=== PATIENT | male | born 1930 | race Caucasian/White ===

== ENCOUNTER → 2016-11-26 | Outpatient (CLI) | payer OTHER, MEDICARE, BC ==
[~2016-11-26] MED LIST: CALTRATE-600 W600 MG PO; CREON 121 CAP PO; KLOR-CON M2020 ME1 PO; LEVAQUIN DPS500 MG PO; LEXAPRO DPS10 MG PO; LIPITOR DPS10 MG PO; METAMUCIL FIBE1 EACH PO; PEPCID DPS20 MG PO; PROAIR HFA8.5 GM IH; PROTONIX40 MG PO; TYLENOL DPS325 MG PO; XELODA150 MG PO
== END | disposition home or self-care (01) ==
LOC: THER.SSS 12:18
DX: E86.0 Dehydration (principal)

== ENCOUNTER → 2016-11-28 | Outpatient (CLI) | payer OTHER, MEDICARE, BC | END | disposition home or self-care (01) | LOC: RAD.S 09:00 | DX: R13.10 Dysphagia, unspecified (principal); R05 Cough; R63.4 Abnormal weight loss ==

== ENCOUNTER 2017-01-04 12:12 | Emergency (ER) | payer MEDICARE, BC ==
--- NOTE | 2017-01-24 21:33 | ER ---
ADMIT: 01/04/2017 RM/LOC: ER [facility] MR#: [id number] [address] [id number] [place] [address] Emergency Room Report SEX: M AGE: 86 : 1930 DATE: 01/04/2017 ADDENDUM: CHIEF COMPLAINT: Fall. HISTORY OF PRESENT ILLNESS: This is an 86-year-old male, who presents to the ER following a fall at [facility], [place]. Per report, the patient was on the toilet when he stood to pull up his pants and fell forward striking his head on the doorjamb. The patient does not remember the event and does not remember coming to the hospital. At baseline, he is somewhat confused, oriented to person, but not place or time. Currently, the patient complains of some swelling and pain to the midline of his forehead and denies any other injuries. Does have a history of pancreatic cancer, as well as cardiac disease, orthostatic hypertension, and lower leg edema. He is not on any blood thinners. COURSE IN THE EMERGENCY ROOM: The patient was seen and examined. His vital signs are stable. VITAL SIGNS: BP 129/73, heart rate 66, respiratory rate 16, temp 98.2. GENERAL: No acute distress. He is alert. HEAD: Shows some tenderness and swelling to the midline with an overlying abrasion. NECK: Nontender with palpation. He is able to complete a complete range of motion without pain or neuro symptoms. EYES: Equal and reactive to light. ENT: Inspection is unremarkable. NEURO: He is alert, disoriented to place, time, and situation. He is slow to respond and his daughter answers most of the questions for him. He is cooperative with the exam and shows an overall flat affect. Cranial nerves are normal as tested. He typically uses a wheelchair and just transfers to bed. No obvious motor deficit on exam. RESPIRATORY: Chest was nontender. Breath sounds are normal. HEART: Sounds are normal. ABDOMEN: Nontender. BACK: No tenderness over any vertebrae. SKIN: Just the abrasion to the midline of his forehead. PELVIS: Stable. I did proceed with CT head and cervical spine which showed no acute process, some evidence of age-related degenerative changes. LABORATORY STUDIES: CBC; white count 8.2, hemoglobin 14.1, Hematocrit 41.6, platelets 156. CMP; sodium 138, potassium 4.3, chloride 104, CO2 of 25, glucose 90, creatinine 0.9. Liver enzymes within normal limits. I did discuss this patient with Dr. Gutierres. Reviewed the labs as well as radiology results he was reassured and felt it was appropriate for this ADMIT: 01/04/2017 RM/LOC: ER [facility] MR#: [id number] [address] [place], [place] [id number] [place] [address] Emergency Room Report SEX: M AGE: 86 : 1930 patient to discharge back to the [facility] facility with followup with any worsening symptoms. IMPRESSION: 1. Closed head injury. 2. Hematoma, midline forehead. 3. Abrasion, midline forehead. 4. History of pancreatic cancer. DISPOSITION: He was discharged back to [facility], [place]. Dr. Gutierres did write some discharge instructions to include Neuro checks q.1 hour for 4 hours and then every 2 hours for 6 hours and finally every 4 hours for 12 hours. They were instructed to accompany patient to bathroom as well as assist with transfers. He wrote for PT and OT as well as using ice to the forehead as needed for pain and swelling. I encouraged the patient to return home and rest. He should continue his home medications and certainly return if he has any worsening signs or symptoms. Otherwise, he should follow up with Dr. Gutierres as needed. He was discharged in stable condition via [place] back to [facility], [place]. ANGELA Riggs / Min Mesa MD / bri JOB #: [id number] CC: Alejandro Charles MD, Attending Physician Harsh Gutierres MD, Family Physician
== END 2017-01-04 14:34 | disposition home or self-care (01) ==
LOC: ER 12:12
DX: S00.83XA Contusion of other part of head, initial encounter (principal); Z85.07 Personal history of malignant neoplasm of pancreas; E78.5 Hyperlipidemia, unspecified; F32.9 Major depressive disorder, single episode, unspecified; Z88.8 Allergy status to other drugs, medicaments and biological substances; Z91.040 Latex allergy status; Z79.899 Other long term (current) drug therapy; W19.XXXA Unspecified fall, initial encounter; Y92.009 Unspecified place in unspecified non-institutional (private) residence as the place of occurrence of the external cause